=== PATIENT | male | born 1985 | race American Indian/Alaskan Native ===

== ENCOUNTER 2019-07-18 08:30 | Emergency (ER) | payer OTHER ==
[2019-07-18 08:41] VITALS: BP 143/93
--- NOTE | 2019-07-18 09:01 | Emergency Department Report ---
ED General Adult HPI - General Chief complaint: Recheck/Abnormal Lab/Rx Stated complaint: MEDICATION REFILL/METFORMIN Time Seen by Provider: 07/18/19 08:53 Source: patient Mode of arrival: Ambulatory Limitations: No Limitations - History of Present Illness Initial comments: 33-year-old insulin dependent diabetic presents to the hospital complaining of h yperglycemia needing a refill in his metformin. Out of his medication 1 month. He was taking metformin 1000 mg once a day. He does not have a primary care doctor but recently had his insurance reinstated and plans to follow-up. He complains of increased thirst and urination without abdominal pain, nausea, vomiting, or fever. We'll close was in the 300s when he checked it this morning. - Related Data Previous Rx's Medication Instructions Recorded Last Taken Type Metformin HCl [Fortamet ER] 1,000 mg PO QDAY #30 tab.er.24 07/18/19 Unknown Rx Allergies Allergy/AdvReac Type Severity Reaction Status Date / Time No Known Allergies Allergy Unverified 07/18/19 08:37 ED Review of Systems ROS: Stated complaint: MEDICATION REFILL/METFORMIN Other details as noted in HPI Comment: All other systems reviewed and negative ED Past Medical Hx - Past Medical History Hx Diabetes: Yes - Social History Smoking Status: Current Every Day Smoker Substance Use Type: Alcohol - Medications Home Medications: Home Medications Medication Instructions Recorded Confirmed Last Taken Type Metformin HCl [Fortamet ER] 1,000 mg PO QDAY #30 tab.er.07/18/19 Unknown Rx ED Physical Exam - General Limitations: No Limitations - Other Other exam information: Gen.: No acute distress Head: Atraumatic Eyes: Normal appearance EENT: Moist mucous membranes Neck: Normal appearance, no posterior midline tenderness, no meningismus Chest: Clear to auscultation bilaterally Cardiovascular: Regular rate and rhythm Abdomen: Normal appearance, soft, nontender, no rebound or guarding, normal bowel sounds Back: Normal appearance, nontender Extremity: Full range of motion, normal appearance Neuro: Alert, clear speech, no focal motor or sensory deficit Psychiatric: Appropriate Skin: No rash ED Course Vital Signs 07/18/19 08:39 Temperature 98.1 F Pulse Rate 80 Respiratory 20 Rate Blood Pressure 143/93 O2 Sat by Pulse 97 Oximetry ED Medical Decision Making - Medical Decision Making Patient does not have any signs or symptoms of DKA. Declined Accu-Chek. Only requesting a med refill. Follow-up advised - Differential Diagnosis hyperglycemia, Preeti Critical Care Time: No Critical care attestation.: If time is entered above; I have spent that time in minutes in the direct care of this critically ill patient, excluding procedure time. ED Disposition Clinical Impression: Diabetes, Medication refill Disposition: DC- TO HOME OR SELFCARE Is pt being admited?: No Does the pt Need Aspirin: No Condition: Stable Instructions: Diabetes Mellitus Type 2 in Adults (ED) Additional Instructions: Take the medication as prescribed. Follow-up with your doctor or with the doctor/clinic provided. Return if symptoms worsen as indicated by your discharge instructions. Prescriptions: Metformin HCl [Fortamet ER] 1,000 mg PO QDAY #30 tab.er.24 Referrals: GEORGETTE MANUEL DO [Staff Physician] - 3-5 Days [facility] [Provider Group] - 3-5 Days Time of Disposition: 09:00
== END 2019-07-18 09:13 | disposition home or self-care (01) ==
LOC: ED 08:30
DX: E11.65 Type 2 diabetes mellitus with hyperglycemia (principal); F17.200 Nicotine dependence, unspecified, uncomplicated; Z76.0 Encounter for issue of repeat prescription; Z79.84 Long term (current) use of oral hypoglycemic drugs

== ENCOUNTER 2020-05-02 11:32 | Emergency (ER) | payer SELFPAY ==
--- NOTE | 2020-05-02 11:37 | Emergency Department Report ---
ED Upper Extremity Inj HPI - General Chief Complaint: Extremity Injury, Upper Stated Complaint: LFT ELBOW PAIN Source: patient Mode of arrival: Ambulatory Limitations: No Limitations - History of Present Illness MD Complaint: Injury to:: left, elbow -: Gradual, week(s) (1) Other Extremity Injury: Elbow: Left Handedness: right Place: home Context: direct blow (accidently hit on car door very hard) Associated Symptoms: denies other symptoms - Related Data Previous Rx's Medication Instructions Recorded Last Taken Type Metformin HCl [Fortamet ER] 1,000 mg PO QDAY #30 tab.er.24 07/18/19 Unknown Rx predniSONE [Deltasone] 50 mg PO QDAY #7 tab 05/02/20 Unknown Rx Allergies Allergy/AdvReac Type Severity Reaction Status Date / Time No Known Allergies Allergy Unverified 07/18/19 08:37 ED Review of Systems ROS: Stated complaint: LFT ELBOW PAIN Other details as noted in HPI Comment: All other systems reviewed and negative ED Past Medical Hx - Past Medical History Previous Medical History?: Yes Hx Diabetes: Yes - Surgical History Past Surgical History?: No - Social History Smoking Status: Current Every Day Smoker Substance Use Type: Alcohol - Medications Home Medications: Home Medications Medication Instructions Recorded Confirmed Last Taken Type Metformin HCl [Fortamet ER] 1,000 mg PO QDAY #30 tab.er.24 07/18/19 Unknown Rx predniSONE [Deltasone] 50 mg PO QDAY #7 tab 05/02/20 Unknown Rx ED Physical Exam - General Limitations: No Limitations - Extremities Exam Extremities exam: Present: tenderness, normal capillary refill - Expanded Upper Extremity Exam Left Upper Arm exam: Present: normal inspection Elbow exam: Present: tenderness, swelling. Absent: dislocation, erythema, effusion, pain w/ pronation/supination Forearm Wrist exam: Present: normal inspection Hand Wrist exam: Present: normal inspection, full ROM ED Medical Decision Making - Radiology Data Radiology results: report reviewed Print Report Referring Physician:JAYANT RUIZPatient Name:MARILY NARVAEZPatient ID:[id number] of :[id number]:MaleAccession:[id number] Date:[id number] Status:Finalized Findings [facility] [address] [place] [address] XRay Report Signed Patient: MARILY NARVAEZ MR# : [id number] : 1985 Acct:[id number] Age/Sex: 34 / M ADM Date: 05/02/20 Loc: ED Attending Dr: Ordering Physician: ACACIA PRAKASH Date of Service: 05/02/20 Procedure(s): XR elbow 3+V LT Accession Number(s): [id number] cc: ACACIA PRAKASH Fluoro Time In Minutes: Left elbow 4 views INDICATION: Left elbow pain and swelling. IMPRESSION: Enthesopathic changes are seen along the elbow and especially the common extensor tendon. No acute fracture or subluxation is identified. No significant effusion is appreciated. Signer Name: William Rich MD Signed: 05/02/2020 11:59 AM Workstation Name: [id number] Transcribed By: Dictated By: William Rich MD Electronically Authenticated By: William Rich MD Signed Date/Time: 05/02/20 115 DD/ 58 TD/TT: Critical care attestation.: If time is entered above; I have spent that time in minutes in the direct care of this critically ill patient, excluding procedure time. ED Disposition Clinical Impression: Elbow tendonitis Disposition: DC-01 TO HOME OR SELFCARE Is pt being admited?: No Does the pt Need Aspirin: No Condition: Stable Instructions: Calcific Tendinitis (ED), Musculoskeletal Pain (ED), Tendinitis (ED), Ice Pack Application (ED) Prescriptions: predniSONE [Deltasone] 50 mg PO QDAY #7 tab Referrals: [facility] [Provider Group] - 3-5 Days
--- NOTE | 2020-05-02 12:04 | XRay Report ---
Left elbow 4 views INDICATION: Left elbow pain and swelling. IMPRESSION: Enthesopathic changes are seen along the elbow and especially the common extensor tendon. No acute fracture or subluxation is identified. No significant effusion is appreciated. Signer Name: William Rich MD Signed: 05/02/2020 11:59 AM Workstation Name: [id number]
[2020-05-02 13:02] VITALS: BP 140/88
== END 2020-05-02 12:14 | disposition home or self-care (01) ==
LOC: ED 11:32
DX: M77.8 Other enthesopathies, not elsewhere classified (principal); E11.9 Type 2 diabetes mellitus without complications; F17.200 Nicotine dependence, unspecified, uncomplicated

== ENCOUNTER 2022-03-08 13:58 | Emergency (ER) | payer SELFPAY ==
--- NOTE | 2022-03-08 16:10 | Emergency Department Report ---
ED Recheck HPI - General Chief Complaint: Medical Clearance Stated Complaint: PRESCRIPTION REFILL Time Seen by Provider: 03/08/22 15:56 Source: patient Mode of arrival: Ambulatory Limitations: No Limitations - History of Present Illness Initial Comments: Patient is a 36-year-old male that comes to the emergency room for a refill of his metformin. I have advised the patient that I would give him a refill today but he needs to be aware that in the future this will not be done. We have allowed him to do this in the past. I have given him a referral to PCP. Blood sugar was 119 this morning per patient. He denies chest pain or shortness of breath. Denies fever or chills. His strictly here for his med refill MD Complaint: medication refill request Symptoms Since Prior Visit: no new symptoms Context: ran out of medication - Related Data Previous Rx's Medication Instructions Recorded Last Taken Type Metformin HCl [Fortamet ER] 1,000 mg PO QDAY #30 tab.er.07/18/19 Unknown Rx Metformin HCl [metFORMIN] 500 mg PO BID #60 03/08/22 Unknown Rx Allergies Allergy/AdvReac Type Severity Reaction Status Date / Time No Known Allergies Allergy Verified 03/08/22 15:44 ED Review of Systems ROS: Stated complaint: PRESCRIPTION REFILL Other details as noted in HPI Comment: All other systems reviewed and negative ED Past Medical Hx - Past Medical History Previous Medical History?: Yes Hx Diabetes: Yes - Surgical History Past Surgical History?: No - Family History Family history: no significant - Social History Smoking Status: Current Every Day Smoker Substance Use Type: Alcohol - Medications Home Medications: Home Medications Medication Instructions Recorded Confirmed Last Taken Type Metformin HCl [Fortamet ER] 1,000 mg PO QDAY #30 tab.er.07/18/19 Unknown Rx Metformin HCl [metFORMIN] 500 mg PO BID #60 03/08/22 Unknown Rx ED Physical Exam - General Limitations: No Limitations General appearance: alert, in no apparent distress - Head Head exam: Present: atraumatic, normocephalic - Eye Eye exam: Present: normal appearance - ENT ENT exam: Present: mucous membranes moist - Neck Neck exam: Present: normal inspection - Respiratory Respiratory exam: Present: normal lung sounds bilaterally. Absent: respiratory distress - Cardiovascular Cardiovascular Exam: Present: regular rate, normal rhythm. Absent: systolic murmur, diastolic murmur, rubs, gallop - GI/Abdominal GI/Abdominal exam: Present: soft, normal bowel sounds - Rectal Rectal exam: Present: deferred - Extremities Exam Extremities exam: Present: normal inspection - Back Exam Back exam: Present: normal inspection - Neurological Exam Neurological exam: Present: alert, oriented X3 - Psychiatric Psychiatric exam: Present: normal affect, normal mood - Skin Skin exam: Present: warm, dry, intact, normal color. Absent: rash ED Course Vital Signs 03/08/22 15:44 Temperature 98.3 F Pulse Rate 77 Respiratory 18 Rate Blood Pressure 144/99 O2 Sat by Pulse 99 Oximetry ED Recheck MDM - Differential Diagnosis Prescription Refill(s) - Medical Decision Making Patient here for medication refill for his metformin. He has no complaints Vital Signs 03/08/22 15:44 Temperature 98.3 F Pulse Rate 77 Respiratory 18 Rate Blood Pressure 144/99 O2 Sat by Pulse 99 Oximetry Patient being discharged home with discharge plan of care including diet, medication, activity and follow-up. He verbalizes understanding Critical care attestation.: If time is entered above; I have spent that time in minutes in the direct care of this critically ill patient, excluding procedure time. ED Disposition Clinical Impression: Medication refill, Hx of diabetes mellitus Disposition: HOME / SELF CARE / HOMELESS Is pt being admited?: No Does the pt Need Aspirin: No Condition: Stable Additional Instructions: Follow-up with PCP for additional med refills ER will not continue to give med refills Referral below Referrals: GIORGIO CARRASCO MD [Staff Physician] - 3-5 Days Time of Disposition: 16:10
[2022-03-08 16:30] VITALS: BP 132/86
== END 2022-03-08 16:29 | disposition home or self-care (01) ==
LOC: ED 13:58
DX: E11.9 Type 2 diabetes mellitus without complications (principal); Z76.0 Encounter for issue of repeat prescription; F17.200 Nicotine dependence, unspecified, uncomplicated; Z72.89 Other problems related to lifestyle; Z79.899 Other long term (current) drug therapy
CPT/HCPCS: 99282